=== PATIENT | female | born 1950 | race American Indian/Alaskan Native ===

== ENCOUNTER 2016-05-26 16:41 | Emergency (ER) | payer OTHER, MEDICAID ==
[2016-05-26 17:04] VITALS: BP 174/101; PULSE 90; RESP 18; TEMP 98; O2SAT 96
[2016-05-26] MEDS ORDERED: Naproxen 550 mg Tab PO STA (17:44)
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
[2016-05-26] MEDS ORDERED: Naproxen 550 mg Tab PO ONE (17:57)
== END 2016-05-26 18:06 | disposition home or self-care (01) ==
LOC: C.ER 16:41
DX: M54.2 Cervicalgia (principal); M54.89 Other dorsalgia; V43.52XA Car driver injured in collision with other type car in traffic accident, initial encounter; Y92.410 Unspecified street and highway as the place of occurrence of the external cause